=== PATIENT | male | born 1995 | race Caucasian/White ===

== ENCOUNTER 2016-07-14 20:08 | Emergency (ER) | payer OTHER ==
[~2016-07-14] VITALS: Ht 177.8 cm; Wt 98.3 kg
[~2016-07-14 20:08] MED LIST: IBUP-103 PO; JUICE PLUS PO
[2016-07-14 20:19] VITALS: TEMP 36.9; Ht 177.8 cm; Wt 98.3 kg
--- NOTE | 2016-07-14 20:54 | DIAGNOSTIC IMAGING REPORT ---
LEFT WRIST MIN 3 VIEWS ROUTINE CLINICAL HISTORY: left wrist pain COMPARISON: 09/01/2015 DISCUSSION: No acute fractures are visualized. There is a 2 mm bony density at the level of the radial aspect of the midpole of the navicular. This is unlikely to represent an acute fracture, and likely represents sequela of the patient's known prior fracture.. IMPRESSION: Subtle bony fragmentation involving the radial aspect of the midpole of the navicular. This is likely the sequela of old trauma.. Electronically signed by: Francisco Melendez M.D. 07/14/2016 8:53 PM Dictated Date/Time: 07/14/2016 8:51 PM
[2016-07-14 21:51] VITALS: BP 126/77; PULSE 82; O2SAT 97
--- NOTE | 2016-07-14 23:37 | EMERGENCY ROOM VISIT NOTE ---
ED Visit Note First contact with patient: 20:22 CHIEF COMPLAINT: Wrist injury HISTORY OF PRESENT ILLNESS: This 20-year-old male patient presents to the emergency department complaining of pain in the left wrist after working for the past several days. The patient is able to move their wrist. The patient states the pain is dull and 7/10. No laceration, no weakness. No numbness or tingling. The patient denies any other injury. The patient is able to move their fingers and elbow without difficulty. The patient has had a previous fracture to this wrist with scaphoid fracture that has been followed by [facility]. The patient has taken nothing for the pain. REVIEW OF SYSTEMS: A 6 system review of systems was performed with positives and pertinent negatives in the HPI. ALLERGIES: Sulfa MEDICATIONS: No chronic medications PMH: Otherwise healthy SOCIAL HISTORY: Employed and lives locally PHYSICAL EXAM: Vital Signs: Reviewed Nurse's notes, vital signs stable. GENERAL : White male, in no acute distress, but appears to be in pain, well-developed, well-neurished. NEURO: Alert and oriented to person place and time. Normal sensation to light and sharp touch. MUSCULOSKELETAL: There is no deformity of the left wrist. There is tenderness and edema over distal radius. There is mild snuff box tenderness. Range of motion is not limited. There is no tenderness of the elbow, hand or fingers. 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 Radial pulse 2+. SKIN: Normal and intact. The hand is warm and well perfused with capillary refill less than 2 seconds. LEFT WRIST MIN 3 VIEWS ROUTINE CLINICAL HISTORY: left wrist pain COMPARISON: 09/01/2015 DISCUSSION: No acute fractures are visualized. There is a 2 mm bony density at the level of the radial aspect of the midpole of the navicular. This is unlikely to represent an acute fracture, and likely represents sequela of the patient's known prior fracture.. IMPRESSION: Subtle bony fragmentation involving the radial aspect of the midpole of the navicular. This is likely the sequela of old trauma.. EMERGENCY DEPARTMENT COURSE: Physical exam and history were performed. Nursing notes and EMR were reviewed. 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 He does have an old scaphoid fracture from about 1 year ago that has been followed by [facility]. He does not have new distinct injury. X-rays were obtained and are without obvious acute findings. I discussed options of care with the patient. He does have a splint at home that he is comfortable wearing, and I recommended that he do this. The patient will need to follow with orthopedics for further care and management. He was otherwise invited back to the ER with any new, worsening, or concerning symptoms. Current/Historical Medications No Active Prescriptions or Reported Meds Allergies Coded Allergies: Sulfa Drugs (Unverified Allergy, Unknown, ., 07/14/16) Vital Signs Date Time Temp Pulse Resp B/P Pulse Ox O2 Delivery O2 Flow Rate FiO2 07/14/16 21:51 82 18 126/77 97 Room Air 07/14/16 20:19 36.9 91 18 138/73 95 Room Air Departure Information Impression Primary Impression: Wrist pain, left Dispostion Home / Self-Care Condition GOOD Prescriptions No Active Prescriptions or Reported Meds Referrals Quentin Mcclain MD Forms HOME CARE DOCUMENTATION FORM, Work Instructions, Additional Instructions: Patient was seen and evaluated today in the emergency department fo medical care. May not lift greater than 10 pounds with the left arm unti 07/21/2016. Must be allowed to wear wrist brace at work. IMPORTANT VISIT INFORMATION Patient Instructions My [facility] Additional Instructions You were seen and evaluated today on an emergency basis only. This is not a substitute for, or an effort to provide, complete comprehensive medical care. It is not possible to recognize and treat all injuries or illnesses in a single emergency department visit. For this reason it is recommended that you followup with [facility], Dr. Mcclain's office, for ongoing care and evaluation. Call in the morning to help arrange a follow-up visit. For baseline pain relief you may alternate ibuprofen and acetaminophen every 4 hours for pain control. Take 600 mg ibuprofen (Advil) and then 4 hours later take 1000 mg acetaminophen (Tylenol). Do not take more than 3000 mg acetaminophen in a single day. Wear your splint from home for comfort and protection. You are welcome to return to the emergency department anytime with new, worsening, or concerning symptoms. Work Instructions Additional Work Instructions: Patient was seen and evaluated today in the emergency department for medical care. May not lift greater than 10 pounds with the left arm until 07/21/2016. Must be allowed to wear wrist brace at work.
== END 2016-07-14 21:53 | disposition home or self-care (01) ==
LOC: C.EDB 20:09 → C.EDD 21:53
DX: M25.532 Pain in left wrist (principal)